=== PATIENT | female | born 1940 | race Caucasian/White ===

== ENCOUNTER → 2018-06-05 14:40 | Outpatient (CLI) | payer MEDICARE, SELFPAY ==
--- NOTE | 2018-06-05 14:49 | RAD_ITS ---
STUDY: X-RAY CHEST REASON FOR EXAM: Female, 77 years old. Long-term drug therapy TECHNIQUE: PA and lateral views of the chest. COMPARISON: 02/18/2014 FINDINGS: There is hyperinflation of the lungs consistent with chronic obstructive lung disease (COPD). Lungs are clear. There is no demonstrated pleural abnormality. There is moderate cardiac enlargement. Normal mediastinum and rahat. Normal visualized pulmonary arteries. There is atherosclerotic tortuosity of the aortic arch and descending thoracic aorta. There are diffuse degenerative changes of the visualized thoracic spine. Right shoulder arthroplasty There is no demonstrated abnormality of the visualized soft tissue structures of the upper abdomen. RAD/Chest PA and Lateral IMPRESSION: COPD without acute findings Electronically Signed: Erwin Veras DO at 15:37 EDT Tel , Service support ,
--- NOTE | 2018-06-05 14:49 | RAD_ITS ---
STUDY: X-RAY - PELVIS REASON FOR EXAM: Female, 77 years old. History of rheumatoid hip pain TECHNIQUE: One view of the pelvis was obtained. COMPARISON: None. FINDINGS: There is a non-specific bowel gas pattern. Normal visualized soft tissue structures. There is narrowing with cortical sclerosis and osteophyte formation of the sacroiliac joint consistent with degenerative osteoarthritic changes. Normal visualized bilateral superior and inferior pubic rami. Normal pubic symphysis. Normal ischial tuberosities. 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 Normal right acetabulum. There is moderate articular joint space narrowing of the right hip. Left hip replacement without evidence of complications RAD/Pelvis 1 or 2 Views IMPRESSION: Degenerative changes. Electronically Signed: Erwin Veras DO at 15:36 EDT Tel , Service support ,
[2018-06-05 17:58] LABS: ALB/GLOB Ratio 1.2 RATIO (0.9-2.4); AST(SGOT) 24 U/L (15-37); Alanine Aminotransfer ALT/SGPT 22 U/L (13-56); Albumin, Serum 4.1 g/dL (3.2-5.0); Alkaline Phosphatase 38 U/L (45-117); Anion Gap 12 (5-15); BUN 19 mg/dL (7-18); CRP < 2.90 mg/L (0.0-3.0); Calcium,Total 9.5 mg/dL (8.5-10.1); Chloride 101 mmol/L (98-107); Creatinine, Serum 1.12 mg/dL (0.55-1.02); EST Glomerular Filtration Rate 50 mL/min (>60); Est Glom Filt Rate - Afr Amer 60 mL/min (>60); Globulin 3.5 g/dL (2.2-4.2); Glucose 89 mg/dL (74-106); Potassium 3.7 mmol/L (3.5-5.1); Protein, Total 7.6 g/dL (6.4-8.2); Sodium Level 140 mmol/L (136-145)
[2018-06-05 18:15] LABS: Erythrocyte Sedimentation Rate 8 mm/hr (0-30)
[2018-06-05 19:03] LABS: Absolute Lymphocyte Count 1.17 X10^3/ul (0.83-4.51); Absolute Neutrophil Count 4.6 X10^3/uL (2.0-7.7); Basophil# 0.02 X10^3/uL; Basophil% 0.3 % (0-1); Eosinophil# 0.05 X10^3/uL; Eosinophils% 0.7 % (0-5); Hematocrit 34.1 % (37-47); Hemoglobin 11.1 g/dl (12.0-15.0); Lymphocyte # 1.17 X10^3/ul (4.0); Lymphocyte % 17.1 % (19-41); Mean Corp Hgb Conc 32.6 g/gl (32-36); Mean Corpuscular Hgb 30.9 pg (27.0-32.0); Mean Platelet Vol. 9.8 fl (6.2-12.0); Monocyte# 0.99 X10^3/uL; Monocyte% 14.5 % (0-10); Neutrophil # 4.58 X10^3/uL (2.7-7.7); Neutrophil % 66.8 % (47-70); Platelet Count 220 K/mm3 (150-450); RBC Distribution Width CV 15.6 % (11.6-14.6); Red Blood Count 3.59 M/mm3 (4.2-5.4); White Blood Count 6.9 K/mm3 (4.4-11.0)
[2018-06-05 19:04] LABS: POSITIVE COUNT NO; POSITIVE DIFFERENTIAL NO; POSITIVE MORPHOLOGY NO
[2018-06-10 03:07] LABS: QNTFERON TB Ag Minus Nil Value 0.05 IU/mL (.); QNTFERON TB Ag Value 0.11 IU/mL (.); QNTFERON TB Mitogen Value > 10.00 IU/mL (.); QNTFERON TB Nil Value 0.06 IU/mL (.)
[2018-06-10 09:23] LABS: QNTIFERON TB Gold Negative (Negative)
== END ==
PROVIDERS: Family Provider Family Medicine; PCP Family Medicine; Visit Provider Internal Medicine Rheumatology
DX: M05.79 Rheumatoid arthritis with rheumatoid factor of multiple sites without organ or systems involvement (principal); K21.9 Gastro-esophageal reflux disease without esophagitis; M81.0 Age-related osteoporosis without current pathological fracture; S32.050A Wedge compression fracture of fifth lumbar vertebra, initial encounter for closed fracture; S22.060A Wedge compression fracture of T7-T8 vertebra, initial encounter for closed fracture; Z87.11 Personal history of peptic ulcer disease; Z79.899 Other long term (current) drug therapy
CPT/HCPCS: 36415; 71046; 72170; 80053; 85025; 85652; 86140; 86480; 86706; 86803; 87340

== ENCOUNTER → 2018-06-09 12:43 | Outpatient (CLI) | payer MEDICARE, SELFPAY ==
[2018-06-10 09:25] LABS: HEPATITIS B SURFACE AG Negative (Negative); Hep B Surface Antibodies Non Reactive (.); Hep C Antibodies 0.1 s/co ratio (0.0-0.9)
== END ==
PROVIDERS: Family Provider Family Medicine; PCP Family Medicine; Visit Provider Internal Medicine Rheumatology
DX: M05.79 Rheumatoid arthritis with rheumatoid factor of multiple sites without organ or systems involvement (principal); K21.9 Gastro-esophageal reflux disease without esophagitis; M81.0 Age-related osteoporosis without current pathological fracture; S32.050A Wedge compression fracture of fifth lumbar vertebra, initial encounter for closed fracture; S22.060A Wedge compression fracture of T7-T8 vertebra, initial encounter for closed fracture; Z87.11 Personal history of peptic ulcer disease; Z79.899 Other long term (current) drug therapy
CPT/HCPCS: 86706; 86803; 87340

== ENCOUNTER → 2018-08-04 08:34 | Outpatient (CLI) | payer MEDICARE, SELFPAY ==
[2018-08-04 08:55] VITALS: BP 152/106; PULSE 65; RESP 18; TEMP 36.6; O2SAT 98; BMI 25.4
== END ==
PROVIDERS: Family Provider Family Medicine; PCP Family Medicine; Visit Provider Internal Medicine Rheumatology
DX: M06.9 Rheumatoid arthritis, unspecified (principal)
CPT/HCPCS: 96365; J7050; A4216; J1602

== ENCOUNTER → 2018-09-01 08:17 | Outpatient (CLI) | payer MEDICARE, SELFPAY ==
[2018-09-01 08:51] VITALS: BP 190/85; PULSE 66; RESP 16; TEMP 38; O2SAT 100; BMI 24.8
[2018-09-01 09:46] VITALS: BP 171/87; PULSE 66; RESP 16; TEMP 37.1; O2SAT 96
== END ==
PROVIDERS: Family Provider Family Medicine; PCP Family Medicine; Visit Provider Internal Medicine Rheumatology
DX: M06.9 Rheumatoid arthritis, unspecified (principal)
CPT/HCPCS: 96365; J7050; A4216; J1602